=== PATIENT | female | born 1960 | race African-American/Black ===

== ENCOUNTER 2020-03-16 08:58 | Inpatient (IN) | payer OTHER ==
--- NOTE | 2020-03-16 09:12 | BHS.RME ---
Substance Use & Tx History - Substance Use History Alcohol Substance amount: 2 pack beers Frequency of use: Daily Substance route: Oral Date of Last Use: 03/15/20 Nicotine Substance amount: 3-4 ciggs Frequency of use: Daily Substance route: Smoking Date of Last Use: 03/15/20 - Last Treatment Date of last treatment: multiple detoxes in past [facility] 20 years ago. Treatment type: Substance Use Disorder (APRIL) Where was last treatment: Detox Physical/Psych/Mental Status - Behavior General Behavior: Increased activity (restlessness, agitation) Eye Contact: Normal - Cooperativeness Cooperativeness: Cooperative - Thinking Thought Processes: Tight, Logical, Goal Directed - Physical Health Problems Is patient presently having any pain?: No Does patient presently have any injuries (include location): No Does patient currently have a fever: No Is patient : No CIWA Nausea/Vomitin-Mild Nausea/No Vomiting Muscle Tremors: 3 Anxiety: 1-Mildly Anxious Agitation: 1-Slight > Activity Paroxysmal Sweats: 4-Forehead w/Sweat Beads Orientation: 1-Uncertain about Date Tacttile Disturbances: 0-None Auditory Disturbances: 0-None Visual Disturbances: 0-None Headache: 2-Mild CIWA-Ar Total Score: 13
[2020-03-16 09:29] VITALS: BMI 22.4
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
[2020-03-16] MEDS ORDERED: MAGNESIUM CITRATE 300 ML BOTTLE PO PRN (10:18)
[2020-03-16] MEDS ORDERED: chlordiazePOXIDE HCL 25 MG CAPSULE PO PRN (10:18)
[2020-03-16] MEDS ORDERED: ACETAMINOPHEN 325 MG TABLET (FP) PO PRN ×2 (10:18)
[2020-03-16] MEDS ORDERED: MAG HYDROX/AL HYDROX/SIMETH 30 ML UNIT-DOSE CUP PO PRN (10:18)
[2020-03-16] MEDS ORDERED: BISMUTH SUBSALICYLATE 262 MG/15 ML BTL PO PRN (10:18)
[2020-03-16] MEDS ORDERED: NICOTINE POLACRILEX 2 MG GUM BUC PRN (10:18)
[2020-03-16] MEDS ORDERED: METHOCARBAMOL 500 MG TABLET PO PRN (10:18)
[2020-03-16] MEDS ORDERED: MAGNESIUM HYDROX 2400MG/30ML ORAL SUSPENSION 30 ML CUP PO PRN (10:18)
[2020-03-16] MEDS ORDERED: MENTHOL/PHENOL 1 EACH UD MM PRN (10:18)
[2020-03-16] MEDS ORDERED: ONDANSETRON *ODT* 4 MG TABLET SL PRN (10:18)
[2020-03-16] MEDS ORDERED: IBUPROFEN 400 MG TABLET (FP) PO PRN (10:18)
--- NOTE | 2020-03-16 11:28 | CONSULT ---
[facility] Psychiatric Consult - Data Date of interview: 03/16/20 Admission source: [facility] Identifying data: Ms Nicole is a 59 years old female, living with her son in the [place] seeking detox treatment for alcohol Substance Abuse History: Reports history of alcohol use. Refer to addiction counseor's summary for further information Medical History: Significant for HIV diagnosed in, and history of umbilical hernia repair. Smokes 3-4 cigarettes daily
--- NOTE | 2020-03-16 11:43 | EKG ---
Test Reason : Blood Pressure : / mmHG Vent. Rate : 082 BPM Atrial Rate : 082 BPM P-R Int : 144 ms QRS Dur : 080 ms QT Int : 416 ms P-R-T Axes : 073 032 047 degrees QTc Int : 486 ms NORMAL SINUS RHYTHM PROLONGED QT ABNORMAL ECG NO PREVIOUS ECGS AVAILABLE Confirmed by HERNAN VILLATORO MD ([id number]) on 03/16/2020 11:42:53 AM Referred By: Confirmed By:HERNAN VILLATORO MD
[2020-03-16] MEDS ORDERED: hydrOXYzine PAMOATE 25 MG CAPSULE (FP) PO PRN (11:58)
[2020-03-16] MEDS ORDERED: hydrOXYzine PAMOATE 25 MG CAPSULE (FP) PO SCH (14:00)
[2020-03-16] MEDS: chlordiazePOXIDE HCL 25 MG CAPSULE PO SCH ×2 (18:48→22:35)
[2020-03-16] MEDS: THIAMINE HCL 100 MG TABLET (FP) PO SCH (22:34)
[2020-03-16] MEDS: MELATONIN 5 MG TABLETS PO SCH (22:35)
[2020-03-17] MEDS: chlordiazePOXIDE HCL 25 MG CAPSULE PO SCH ×4 (06:16→22:48)
[2020-03-17] MEDS: NICOTINE 7 MG/24 HOURS TOPICAL PATCH TD SCH (10:21)
[2020-03-17] MEDS: PRENATAL VITAMINS W/ FOLIC ACID TABLET (FP) PO SCH (10:43)
--- NOTE | 2020-03-17 10:53 | PN ---
S CIWA - CIWA Score Nausea/Vomitin-No Nausea/No Vomiting Muscle Tremors: 3 Anxiety: 3 Agitation: 3 Paroxysmal Sweats: 2 Orientation: 0-Oriented Tacttile Disturbances: 0-None Auditory Disturbances: 0-None Visual Disturbances: 0-None Headache: 0-None Present CIWA-Ar Total Score: 11 BHS Progress Note (SOAP) Subjective: sweats crying spells restless body aches shakes Objective: 03/17/20 10:52 Vital Signs Temperature 97.7 F 03/17/20 08:50 Pulse Rate 74 03/17/20 08:50 Respiratory Rate 17 03/17/20 08:50 Blood Pressure 112/67 03/17/20 08:50 O2 Sat by Pulse Oximetry (%) 98 03/17/20 08:50 Laboratory Tests 03/16/20 03/16/20 10:10 10:10 Sickle Cell Screen Positive Syphilis Serology Non-reactive rest of labs pending aaox3 ambulating no acute distress Assessment: 03/17/20 10:53 withdrawals Plan: continue detox psych consultation ordered increase fluids
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
[2020-03-17] MEDS ORDERED: COLLOIDAL OATMEAL 1 BAR EACH TP ONE (13:56)
[2020-03-17] MEDS: THIAMINE HCL 100 MG TABLET (FP) PO SCH (22:49)
[2020-03-17] MEDS: MELATONIN 5 MG TABLETS PO SCH (22:51)
[2020-03-18] MEDS: chlordiazePOXIDE HCL 25 MG CAPSULE PO SCH ×4 (06:00→23:49)
[2020-03-18] MEDS: NICOTINE 7 MG/24 HOURS TOPICAL PATCH TD SCH (10:17)
[2020-03-18] MEDS: PRENATAL VITAMINS W/ FOLIC ACID TABLET (FP) PO SCH (10:18)
--- NOTE | 2020-03-18 13:53 | PN ---
BHS CIWA - CIWA Score Nausea/Vomitin-No Nausea/No Vomiting Muscle Tremors: 2 Anxiety: 2 Agitation: 2 Paroxysmal Sweats: 2 Orientation: 0-Oriented Tacttile Disturbances: 0-None Auditory Disturbances: 0-None Visual Disturbances: 0-None Headache: 0-None Present CIWA-Ar Total Score: 8 BHS Progress Note (SOAP) Subjective: sweats feeling better tired/dizzy Objective: 03/18/20 13:52 Vital Signs Temperature 97.5 F L 03/18/20 09:22 Pulse Rate 102 H 03/18/20 09:22 Respiratory Rate 18 03/18/20 09:22 Blood Pressure 152/94 03/18/20 09:22 O2 Sat by Pulse Oximetry (%) 96 03/18/20 09:22 Laboratory Tests 03/16/20 03/16/20 10:10 10:10 Sickle Cell Screen Positive Syphilis Serology Non-reactive scanned labs noted aaox3 lying down no acute distress Assessment: 03/18/20 13:53 withdrawals Plan: continue detox increase fluids
[2020-03-18] MEDS: MELATONIN 5 MG TABLETS PO SCH (23:48)
[2020-03-18] MEDS: THIAMINE HCL 100 MG TABLET (FP) PO SCH (23:48)
[2020-03-19] MEDS ORDERED: chlordiazePOXIDE HCL 10 MG CAPSULE PO PRN
[2020-03-19 00:07] LABS: HGB SOLUBILITY Positive (Negative); Hgb C 0 % (0.0); Hgb F 0 % (0.0-2.0); Hgb S 39.5 % (0.0)
[2020-03-19] MEDS: chlordiazePOXIDE HCL 10 MG CAPSULE PO SCH ×4 (06:08→22:39)
[2020-03-19] MEDS ORDERED: BACITRACIN 0.9 GM PACKET TP ONE (08:12)
--- NOTE | 2020-03-19 08:12 | PN ---
BHS Progress Note Note: pt reports she hit her right foot against the door when coming out of the rom . Small superficial abrasion noted on the dorsum of the right great toe approx 0.5 cm in lenght , vertical, at the base of the toenail . Minimal tenderness topalpation . P : topical bacitracin ointment , analgesics .
[2020-03-19] MEDS: NICOTINE 7 MG/24 HOURS TOPICAL PATCH TD SCH (10:07)
[2020-03-19] MEDS: PRENATAL VITAMINS W/ FOLIC ACID TABLET (FP) PO SCH (10:07)
--- NOTE | 2020-03-19 11:29 | PN ---
S CIWA - CIWA Score Nausea/Vomitin-No Nausea/No Vomiting Muscle Tremors: 2 Anxiety: 1-Mildly Anxious Agitation: 2 Paroxysmal Sweats: 1-Minimal Palms Moist Orientation: 0-Oriented Tacttile Disturbances: 0-None Auditory Disturbances: 0-None Visual Disturbances: 0-None Headache: 0-None Present CIWA-Ar Total Score: 6 BHS Progress Note (SOAP) Subjective: sweats anxiety bump my toe with the door last night Objective: 03/19/20 11:29 Vital Signs Temperature 98.9 F 03/19/20 08:27 Pulse Rate 81 03/19/20 08:27 Respiratory Rate 16 03/19/20 08:27 Blood Pressure 121/84 03/19/20 08:27 O2 Sat by Pulse Oximetry (%) 100 03/19/20 08:27 Laboratory Tests 03/16/20 03/16/20 03/16/20 10:10 10:10 10:10 Sickle Cell Screen Positive Hemoglobin A 56.2 L Hemoglobin A2 4.3 H Hemoglobin C 0 Hemoglobin S 39.5 H Variant Hemoglobin 0.0 Hemoglobin Interpret Maternal Rh 0 Hemoglobin Solubility Positive H Syphilis Serology Non-reactive labs noted pt is sickle cell screen +, pt made aware of lab result aaox3 ambulating no acute distress Assessment: 03/19/20 11:40 withdrawals small abrasion noted to right toe skin area, no bruising noted bacitracin oint ordered Plan: continue detox
[2020-03-19] MEDS ORDERED: MASKS NR ONE (17:42)
[2020-03-19] MEDS: MELATONIN 5 MG TABLETS PO SCH (22:39)
[2020-03-19] MEDS: THIAMINE HCL 100 MG TABLET (FP) PO SCH (22:39)
[2020-03-20] MEDS ORDERED: chlordiazePOXIDE HCL 10 MG CAPSULE PO SCH (05:00)
[2020-03-20 08:56] VITALS: BP 124/72; PULSE 20; TEMP 97.8
--- NOTE | 2020-03-20 09:25 | DS ---
[facility] Detox Discharge Summary Admission Date: 03/16/20 Discharge Date: 03/20/20 - History Present History: Alcohol Dependence - Physical Exam Results Vital Signs: Vital Signs Temperature 97.8 F 03/20/20 08:55 Pulse Rate 20 L 03/20/20 08:55 Respiratory Rate 16 03/20/20 08:55 Blood Pressure 124/72 03/20/20 08:55 O2 Sat by Pulse Oximetry (%) 98 03/20/20 08:55 Pertinent Admission Physical Exam Findings: Vital Signs Temperature 97.8 F 03/20/20 08:55 Pulse Rate 20 L 03/20/20 08:55 Respiratory Rate 16 03/20/20 08:55 Blood Pressure 124/72 03/20/20 08:55 O2 Sat by Pulse Oximetry (%) 98 03/20/20 08:55 Laboratory Tests 03/16/20 03/16/20 03/16/20 10:10 10:10 10:10 Sickle Cell Screen Positive Hemoglobin A 56.2 L Hemoglobin A2 4.3 H Hemoglobin C 0 Hemoglobin S 39.5 H Variant Hemoglobin 0.0 Hemoglobin Interpret Maternal Rh 0 Hemoglobin Solubility Positive H Syphilis Serology Non-reactive aaox3 ambulating no acute distress - Treatment Hospital Course: Detox Protocol Followed, Detoxed Safely, Responded well, D ischarged Condition Good, Rehab Referral Accepted - Medication Discharge Medications: Ambulatory Orders Loratadine 10 mg PO DAILY 03/16/20 - Diagnosis (1) Alcohol dependence with withdrawal, uncomplicated Current Visit: Yes Status: Chronic (2) Alcohol-induced mood disorder Current Visit: Yes Status: Acute (3) Alcohol-induced sleep disorder Current Visit: Yes Status: Acute (4) HIV (human immunodeficiency virus infection) Current Visit: Yes Status: Chronic Qualifiers: HIV symptom status: unspecified Qualified Code(s): B20 - Human immunodeficiency virus [HIV] disease (5) Bipolar 1 disorder Current Visit: Yes Status: Chronic (6) Nicotine dependence Current Visit: Yes Status: Chronic Qualifiers: Nicotine product type: cigarettes Substance use status: uncomplicated Qualified Code(s): F17.210 - Nicotine dependence, cigarettes, uncomplicated - AMA Did Patient Leave Against Medical Advice: No
[2020-03-20] MEDS: PRENATAL VITAMINS W/ FOLIC ACID TABLET (FP) PO SCH (10:06)
[2020-03-20] MEDS: NICOTINE 7 MG/24 HOURS TOPICAL PATCH TD SCH (10:07)
[2020-03-21] MEDS ORDERED: chlordiazePOXIDE HCL 10 MG CAPSULE PO ONE (05:00)
== END 2020-03-20 11:06 | disposition other institution (70) | DRG 775 ==
LOC: YASAS 08:58 → Y6N 09:50
PROVIDERS: ADMIT Allergy & Immunology; ATTEND Allergy & Immunology
PROC: HZ2ZZZZ Detoxification Services for Substance Abuse Treatment (ICD-10-PCS; principal; 2020-03-16)
DX: F10.230 Alcohol dependence with withdrawal, uncomplicated (principal); F17.210 Nicotine dependence, cigarettes, uncomplicated; F10.24 Alcohol dependence with alcohol-induced mood disorder; F10.282 Alcohol dependence with alcohol-induced sleep disorder; F31.9 Bipolar disorder, unspecified; Z21 Asymptomatic human immunodeficiency virus [HIV] infection status; S90.411A Abrasion, right great toe, initial encounter; W22.8XXA Striking against or struck by other objects, initial encounter; Y93.89 Activity, other specified; Y92.230 Patient room in hospital as the place of occurrence of the external cause; Y99.8 Other external cause status; Z90.49 Acquired absence of other specified parts of digestive tract; Z56.0 Unemployment, unspecified
CPT/HCPCS: 36415; 83021; 85660; 86780; 93005; 93010

== ENCOUNTER 2020-03-20 10:30 | Inpatient (IN) | payer OTHER ==
[2020-03-20] MEDS ORDERED: MAGNESIUM CITRATE 300 ML BOTTLE PO PRN (12:22)
[2020-03-20] MEDS ORDERED: LOPERAMIDE HCL 2 MG CAPSULE PO PRN (12:22)
[2020-03-20] MEDS ORDERED: ACETAMINOPHEN 325 MG TABLET (FP) PO PRN (12:22)
[2020-03-20] MEDS ORDERED: P-EPHED 60MG/TRIPROLIDI 2.5MG TABLET PO PRN (12:22)
[2020-03-20] MEDS ORDERED: MAG HYDROX/AL HYDROX/SIMETH 30 ML UNIT-DOSE CUP PO PRN (12:22)
[2020-03-20] MEDS ORDERED: MENTHOL/PHENOL 1 EACH UD MM PRN (12:22)
[2020-03-20] MEDS ORDERED: guaiFENesin 200 MG/10 ML 10 ML UNIT-DOSE CUPS PO PRN (12:22)
[2020-03-20] MEDS ORDERED: MAGNESIUM HYDROX 2400MG/30ML ORAL SUSPENSION 30 ML CUP PO PRN (12:22)
[2020-03-20] MEDS ORDERED: IBUPROFEN 400 MG TABLET (FP) PO PRN (12:22)
--- NOTE | 2020-03-20 12:22 | HP ---
[facility] Rehab Assess/Revision - Admission History Admitted to Rehab from: [address] - Vital signs Vital Signs: Vital Signs Period Temp Pulse Resp BP Sys/Bender Pulse Ox Last 24 Hr 97.3 F 84 18 98/65 - Findings Detox History & Physical reviewed: Yes Concur with findings: Yes Inpatient Rehab Admission - Rehab Decision to Admit Inpatient rehab admission?: Yes - Initial Determination Are CD services needed?: Yes Free of communicable disease: Yes Not in need of hospitalization: Yes - Rehab Admission Criteria Previous failed treatment: Yes Poor recovery environment: Yes Comorbidities: Yes Lacks judgement: Yes Patient is meeting Inpatient Rehab admission criteria:: Yes
--- OUTSIDE RECORDS SUMMARY | 2020-03-20 18:59 | XMS ---
:1960 Author Organization [facility] Support Name Relationship Address Phone UE, UNEMPLOYED Unavailable Unavailable Unavailable UE Unavailable Unavailable Unavailable FRANCES VALLE (THERAPIST) [place] [address] [place] [address] MATTHE[place] [address] Re-disclosure Warning The records that you are about to access may contain information from federally- assisted alcohol or drug abuse programs. If such information is present, then the following federally mandated warning applies: This information has been disclosed to you from records protected by federal confidentiality rules (42 CFR part 2). The federal rules prohibit you from making any further disclosure of this information unless further disclosure is expressly permitted by the written consent of the person to whom it pertains or as otherwise permitted by 42 CFR part 2. A general authorization for the release of medical or other information is NOT sufficient for this purpose. The Federal rules restrict any use of the information to criminally investigate or prosecute any alcohol or drug abuse patient.The records that you are about to access may contain highly sensitive health information, the redisclosure of which is protected by Article 27-F of the [facility] Public Health law. If you continue you may haveaccess to information: Regarding HIV / AIDS; Provided by facilities licensed or operated by the [facility] Office of Mental Health; or Provided by the [facility] Office for People With Developmental Disabilities. If such information is present, then the following [facility] mandated warning applies: This information has been disclosed to you from confidential records which are protected by state law. State law prohibits you from making any further disclosure of this information without the specific written consent of the person to whom it pertains, or as otherwise permitted by law. Any unauthorized further disclosure in violation of state law may result in a fine or halfway sentence or both. A general authorization for the release of medical or other information is NOT sufficient authorization for further disclosure. Insurance Providers Payer name Policy type Policy ID Covered Covered constitution party's Policy P vy / Coverage constitution party ID relationship to [employer] ormation type lutz [employer] [id number] SP [id number] Results ID Date Data Source [id number] 03/15/2020 05:07:00 PM EDT [facility] Name Value Range Interpretation Code Description Data Lydia rce(s) Supporting Document(s ) SARS-CoV-2 [facility] Ql MICHAEL+probe This lab was ordered by [facility] a nd reported by [facility]. Procedure
[2020-03-20] MEDS: MELATONIN 5 MG TABLETS PO SCH (21:39)
[2020-03-20] MEDS: THIAMINE HCL 100 MG TABLET (FP) PO SCH (21:39)
[2020-03-21] MEDS: NICOTINE 21 MG/24 HOURS TOPICAL PATCH TD SCH (09:57)
[2020-03-21] MEDS: PRENATAL VITAMINS W/ FOLIC ACID TABLET (FP) PO SCH (09:57)
[2020-03-21 17:42] LABS: EPI CELLS >36 /uL (0-25.1); HYALINE CASTS 2 /uL (0-3.1); URINE APPEARANCE CLEAR; URINE BACTERIA 1916 /uL (0-1359); URINE BILIRUBIN NEGATIVE (NEGATIVE); URINE COLOR YELLOW; URINE GLUCOSE (UA) NEGATIVE (NEGATIVE); URINE KETONE NEGATIVE (NEGATIVE); URINE LEUK ESTERASE 3+ (NEGATIVE); URINE NITRITE NEGATIVE (NEGATIVE); URINE PROTEIN NEGATIVE (NEGATIVE); URINE RBC 11 /uL (0-23.9); URINE UROBILINOGEN 0.2 mg/dL (0.2-1.0); URINE WBC 124 /uL (0-25.8)
--- NOTE | 2020-03-21 19:07 | PN ---
[facility] Progress Note Note: Patient was seen earlier this afternoon for c/o urinary frequency, mild suprapubic tenderness, dysuria, she denies hematuria,. She denies chills, N/V. PE Vital Signs 03/21/20 14:30 O2 Sat by Pulse 99 Oximetry (%) Vital Signs - 24 hr 03/20/20 03/21/20 03/21/20 20:30 06:20 14:30 Temperature 97.3 F L Pulse Rate 76 Respiratory 16 Rate Blood Pressure 126/73 O2 Sat by Pulse 100 100 99 Oximetry (%) Laboratory Last Values Urine Color Yellow 03/21/20 17:03 Urine Appearance Clear 03/21/20 17:03 Urine pH 7.0 (5.0-8.0) 03/21/20 17:03 Ur Specific [place] 1.013 (1.010-1.035) 03/21/20 17:03 Urine Protein Negative (NEGATIVE) 03/21/20 17:03 Urine Glucose (UA) Negative (NEGATIVE) 03/21/20 17:03 Urine Ketones Negative (NEGATIVE) 03/21/20 17:03 Urine Blood Negative (NEGATIVE) 03/21/20 17:03 Urine Nitrite Negative (NEGATIVE) 03/21/20 17:03 Urine Bilirubin Negative (NEGATIVE) 03/21/20 17:03 Urine Urobilinogen 0.2 mg/dL (0.2-1.0) 03/21/20 17:03 Ur Leukocyte Esterase 3+ (NEGATIVE) H 03/21/20 17:03 Urine WBC (Auto) 124 /uL (0-25.8) 03/21/20 17:03 Urine RBC (Auto) 11 /uL (0-23.9) 03/21/20 17:03 Urine Casts (Auto) 2 /uL (0-3.1) 03/21/20 17:03 U Epithel Cells (Auto) >36 /uL (0-25.1) 03/21/20 17:03 Urine Bacteria (Auto) 1916 /uL (0-1359) 03/21/20 17:03 ABD: BS x 4, NT, ND, UA noted, positive Leukocyte Esterase Given current symptoms, will initiate treatment for UTI Macrodantin ordered for 5 days
[2020-03-21] MEDS: THIAMINE HCL 100 MG TABLET (FP) PO SCH (21:46)
[2020-03-21] MEDS: MELATONIN 5 MG TABLETS PO SCH (21:47)
[2020-03-21] MEDS ORDERED: PT OWN MED DRAWER 7, Y5N ONE (21:50)
[2020-03-21] MEDS: NITROFURANTOIN MACROCRYSTAL 50 MG CAPSULE (FP) PO SCH (23:49)
[2020-03-22] MEDS ORDERED: PT OWN MED DRAWER 7, Y5N ONE (02:51)
[2020-03-22] MEDS: NITROFURANTOIN MACROCRYSTAL 50 MG CAPSULE (FP) PO SCH ×4 (06:59→23:32)
[2020-03-22] MEDS: NICOTINE 21 MG/24 HOURS TOPICAL PATCH TD SCH (09:25)
[2020-03-22] MEDS: PRENATAL VITAMINS W/ FOLIC ACID TABLET (FP) PO SCH (09:25)
[2020-03-22] MEDS ORDERED: MASKS NR ONE (17:58)
[2020-03-22] MEDS: NICOTINE POLACRILEX 2 MG GUM BUC PRN (18:58)
[2020-03-22] MEDS: THIAMINE HCL 100 MG TABLET (FP) PO SCH (21:51)
[2020-03-22] MEDS: MELATONIN 5 MG TABLETS PO SCH (21:51)
[2020-03-23] MEDS: NITROFURANTOIN MACROCRYSTAL 50 MG CAPSULE (FP) PO SCH ×4 (06:32→23:34)
[2020-03-23] MEDS: PRENATAL VITAMINS W/ FOLIC ACID TABLET (FP) PO SCH (09:46)
[2020-03-23] MEDS: NICOTINE 21 MG/24 HOURS TOPICAL PATCH TD SCH (09:46)
--- NOTE | 2020-03-23 12:29 | PN ---
[facility] Progress Note Note: Vital Signs Temperature 97.4 F L 03/23/20 06:45 Pulse Rate 74 03/23/20 06:45 Respiratory Rate 18 03/23/20 06:45 Blood Pressure 125/81 03/23/20 06:45 O2 Sat by Pulse Oximetry (%) 100 03/23/20 06:45 PATIENT C/O DRY MOUTH AND BAD BREATH ODOR. DENIES ORAL PAIN AND LESIONS. A/P A/P HALITOSIS WILL ORDER PERIDEX MM BID MONITOR CLINICALLY
[2020-03-23] MEDS ORDERED: PT OWN MED DRAWER 7, Y5N ONE (17:11)
[2020-03-23] MEDS: MELATONIN 5 MG TABLETS PO SCH (21:30)
[2020-03-23] MEDS: THIAMINE HCL 100 MG TABLET (FP) PO SCH (21:30)
[2020-03-23] MEDS: CHLORHEXIDINE GLUCONATE 118 ML MOUTHWASH MM SCH (21:31)
[2020-03-24] MEDS ORDERED: PT OWN MED DRAWER 7, Y5N ONE ×3 (05:06→16:51)
[2020-03-24] MEDS: NITROFURANTOIN MACROCRYSTAL 50 MG CAPSULE (FP) PO SCH ×4 (06:38→23:49)
[2020-03-24] MEDS: NICOTINE 21 MG/24 HOURS TOPICAL PATCH TD SCH (09:42)
[2020-03-24] MEDS: CHLORHEXIDINE GLUCONATE 118 ML MOUTHWASH MM SCH ×2 (09:42→21:33)
[2020-03-24] MEDS: PRENATAL VITAMINS W/ FOLIC ACID TABLET (FP) PO SCH (09:42)
[2020-03-24] MEDS: MELATONIN 5 MG TABLETS PO SCH (21:32)
[2020-03-24] MEDS: THIAMINE HCL 100 MG TABLET (FP) PO SCH (21:32)
[2020-03-25] MEDS: NITROFURANTOIN MACROCRYSTAL 50 MG CAPSULE (FP) PO SCH (06:16)
[2020-03-25] MEDS: PRENATAL VITAMINS W/ FOLIC ACID TABLET (FP) PO SCH (09:29)
[2020-03-25] MEDS: CHLORHEXIDINE GLUCONATE 118 ML MOUTHWASH MM SCH ×3 (09:30→16:25)
[2020-03-25] MEDS: NICOTINE 21 MG/24 HOURS TOPICAL PATCH TD SCH (09:30)
[2020-03-25] MEDS: HYDROCORTISONE 1% TOPICAL OINT 30 GM TUBE TP PRN (16:57)
[2020-03-25] MEDS ORDERED: PT OWN MED DRAWER 7, Y5N ONE ×3 (16:57→21:51)
[2020-03-25] MEDS: THIAMINE HCL 100 MG TABLET (FP) PO SCH (21:26)
[2020-03-25] MEDS: MELATONIN 5 MG TABLETS PO SCH (21:27)
[2020-03-26] MEDS: CHLORHEXIDINE GLUCONATE 118 ML MOUTHWASH MM SCH ×3 (09:31→21:21)
[2020-03-26] MEDS: PRENATAL VITAMINS W/ FOLIC ACID TABLET (FP) PO SCH (09:36)
[2020-03-26] MEDS ORDERED: MASKS NR ONE (09:37)
[2020-03-26] MEDS: NICOTINE 21 MG/24 HOURS TOPICAL PATCH TD SCH (09:38)
--- NOTE | 2020-03-26 12:47 | PN ---
S Progress Note Note: Urine culture results reviewed; no organism found. Patient made aware. Vital Signs Period Temp Pulse Resp BP Sys/Bender Pulse Ox Last 24 Hr 97.3 F 73 20 122/76 98-100
[2020-03-26] MEDS: THIAMINE HCL 100 MG TABLET (FP) PO SCH (21:21)
[2020-03-26] MEDS: MELATONIN 5 MG TABLETS PO SCH (21:21)
[2020-03-27] MEDS: CHLORHEXIDINE GLUCONATE 118 ML MOUTHWASH MM SCH ×3 (06:33→17:50)
[2020-03-27] MEDS: PRENATAL VITAMINS W/ FOLIC ACID TABLET (FP) PO SCH (09:30)
[2020-03-27] MEDS: NICOTINE 21 MG/24 HOURS TOPICAL PATCH TD SCH (09:30)
[2020-03-27] MEDS: COLLOIDAL OATMEAL 1 BAR EACH TP PRN (15:49)
[2020-03-27] MEDS ORDERED: PT OWN MED DRAWER 7, Y5N ONE (17:03)
[2020-03-27] MEDS: THIAMINE HCL 100 MG TABLET (FP) PO SCH (21:56)
[2020-03-27] MEDS: MELATONIN 5 MG TABLETS PO SCH (21:56)
[2020-03-28] MEDS: CHLORHEXIDINE GLUCONATE 118 ML MOUTHWASH MM SCH ×3 (06:50→18:31)
[2020-03-28] MEDS: PRENATAL VITAMINS W/ FOLIC ACID TABLET (FP) PO SCH (10:08)
[2020-03-28] MEDS: NICOTINE 21 MG/24 HOURS TOPICAL PATCH TD SCH (10:08)
[2020-03-28] MEDS: HYDROCORTISONE 1% TOPICAL OINT 30 GM TUBE TP PRN (10:08)
[2020-03-28] MEDS: NICOTINE POLACRILEX 2 MG GUM BUC PRN (13:38)
[2020-03-28] MEDS ORDERED: PT OWN MED DRAWER 7, Y5N ONE (17:00)
[2020-03-28] MEDS: MELATONIN 5 MG TABLETS PO SCH (21:11)
[2020-03-28] MEDS: THIAMINE HCL 100 MG TABLET (FP) PO SCH (21:11)
[2020-03-29] MEDS ORDERED: PT OWN MED DRAWER 7, Y5N ONE ×4 (05:23→21:32)
[2020-03-29] MEDS: CHLORHEXIDINE GLUCONATE 118 ML MOUTHWASH MM SCH ×3 (06:27→17:20)
[2020-03-29] MEDS: PRENATAL VITAMINS W/ FOLIC ACID TABLET (FP) PO SCH (09:49)
[2020-03-29] MEDS: NICOTINE 21 MG/24 HOURS TOPICAL PATCH TD SCH (09:49)
[2020-03-29] MEDS: HYDROCORTISONE 1% TOPICAL OINT 30 GM TUBE TP PRN (09:49)
[2020-03-29] MEDS: MELATONIN 5 MG TABLETS PO SCH (21:29)
[2020-03-29] MEDS: THIAMINE HCL 100 MG TABLET (FP) PO SCH (21:29)
[2020-03-29] MEDS: hydrOXYzine PAMOATE 25 MG CAPSULE (FP) PO PRN (21:32)
[2020-03-30] MEDS ORDERED: PT OWN MED DRAWER 7, Y5N ONE ×2 (05:21→14:01)
[2020-03-30] MEDS: CHLORHEXIDINE GLUCONATE 118 ML MOUTHWASH MM SCH ×3 (06:30→21:20)
[2020-03-30] MEDS: COLLOIDAL OATMEAL 1 BAR EACH TP PRN (06:54)
[2020-03-30] MEDS: PRENATAL VITAMINS W/ FOLIC ACID TABLET (FP) PO SCH (09:42)
[2020-03-30] MEDS: NICOTINE 21 MG/24 HOURS TOPICAL PATCH TD SCH (09:42)
[2020-03-30] MEDS: HYDROCORTISONE 1% TOPICAL OINT 30 GM TUBE TP PRN (09:43)
[2020-03-30] MEDS: MELATONIN 5 MG TABLETS PO SCH (21:20)
[2020-03-30] MEDS: hydrOXYzine PAMOATE 25 MG CAPSULE (FP) PO PRN (21:20)
[2020-03-30] MEDS: THIAMINE HCL 100 MG TABLET (FP) PO SCH (21:20)
[2020-03-31] MEDS ORDERED: PT OWN MED DRAWER 7, Y5N ONE (03:18)
[2020-03-31] MEDS: CHLORHEXIDINE GLUCONATE 118 ML MOUTHWASH MM SCH ×3 (06:38→18:21)
[2020-03-31] MEDS: NICOTINE 21 MG/24 HOURS TOPICAL PATCH TD SCH (09:31)
[2020-03-31] MEDS: PRENATAL VITAMINS W/ FOLIC ACID TABLET (FP) PO SCH (09:31)
[2020-03-31] MEDS: HYDROCORTISONE 1% TOPICAL OINT 30 GM TUBE TP PRN (09:33)
[2020-03-31] MEDS: hydrOXYzine PAMOATE 25 MG CAPSULE (FP) PO PRN (20:59)
[2020-03-31] MEDS: MELATONIN 5 MG TABLETS PO SCH (20:59)
[2020-03-31] MEDS: THIAMINE HCL 100 MG TABLET (FP) PO SCH (20:59)
[2020-04-01] MEDS ORDERED: PT OWN MED DRAWER 7, Y5N ONE (03:18)
[2020-04-01] MEDS: CHLORHEXIDINE GLUCONATE 118 ML MOUTHWASH MM SCH ×3 (06:56→21:28)
[2020-04-01 07:04] VITALS: TEMP 97.3
[2020-04-01] MEDS: NICOTINE 21 MG/24 HOURS TOPICAL PATCH TD SCH (09:32)
[2020-04-01] MEDS: PRENATAL VITAMINS W/ FOLIC ACID TABLET (FP) PO SCH (09:32)
[2020-04-01] MEDS: THIAMINE HCL 100 MG TABLET (FP) PO SCH (21:27)
[2020-04-01] MEDS: hydrOXYzine PAMOATE 25 MG CAPSULE (FP) PO PRN (21:27)
[2020-04-01] MEDS: MELATONIN 5 MG TABLETS PO SCH (21:28)
[2020-04-02] MEDS: CHLORHEXIDINE GLUCONATE 118 ML MOUTHWASH MM SCH ×3 (06:33→18:30)
[2020-04-02] MEDS: NICOTINE 21 MG/24 HOURS TOPICAL PATCH TD SCH (09:08)
[2020-04-02] MEDS: PRENATAL VITAMINS W/ FOLIC ACID TABLET (FP) PO SCH (09:08)
[2020-04-02] MEDS: HYDROCORTISONE 1% TOPICAL OINT 30 GM TUBE TP PRN (09:08)
[2020-04-02] MEDS ORDERED: PT OWN MED DRAWER 7, Y5N ONE (10:02)
[2020-04-02] MEDS: THIAMINE HCL 100 MG TABLET (FP) PO SCH (21:12)
[2020-04-02] MEDS: hydrOXYzine PAMOATE 25 MG CAPSULE (FP) PO PRN (21:13)
[2020-04-02] MEDS: MELATONIN 5 MG TABLETS PO SCH (21:13)
[2020-04-03] MEDS ORDERED: PT OWN MED DRAWER 7, Y5N ONE (04:10)
[2020-04-03 06:49] VITALS: BP 114/74; PULSE 77
[2020-04-03] MEDS: CHLORHEXIDINE GLUCONATE 118 ML MOUTHWASH MM SCH (06:53)
--- NOTE | 2020-04-03 08:58 | DS ---
[facility] Rehab Discharge Summary - [facility] Rehab Discharge Summary Admission Date: 03/20/20 Discharge Date: 04/03/20 - History Present History: Alcohol dependence - Discharge Physical Exam Vital Signs: Vital Signs Temperature 97.3 F L 04/03/20 06:10 Pulse Rate 77 04/03/20 06:10 Respiratory Rate 18 04/03/20 06:10 Blood Pressure 114/74 04/03/20 06:10 O2 Sat by Pulse Oximetry (%) 100 04/03/20 06:10 Laboratory Tests 03/21/20 17:03 Urine Color Yellow Urine Appearance Clear Urine pH 7.0 Ur Specific [place] 1.013 Urine Protein Negative Urine Glucose (UA) Negative Urine Ketones Negative Urine Blood Negative Urine Nitrite Negative Urine Bilirubin Negative Urine Urobilinogen 0.2 Ur Leukocyte Esterase 3+ H Urine WBC (Auto) 124 Urine RBC (Auto) 11 Urine Casts (Auto) 2 U Epithel Cells (Auto) >36 Urine Bacteria (Auto) 1916 ROS: DENIES CHEST PAIN, SOB, FEVER, COUGH, SHAKES, HEADACHE, ALCOHOL CRAVINGS AND SWEATING. +MILD ANXIETY REGARDING MAINTAINING SOBRIETY PE: ALERT AND ORIENTED X 3 SKIN WARM AND DRY +PERRLA, EOMS INTACT BL IN NAD GI NT, ND EXT FULL ROM, AMB AD HAFSA NO TREMORS MILDLY ANXIOUS A/P: ETOH DEPENDENCE PATIENT IS MEDICALLY STABLE FOR D/C AFTERCARE ARRANGED FOR [facility], 04/06/2020 1PM. - Treatment Discharge Condition: Discharge condition good, Rehabilitated safely, Responded well, Outpatient referral accepted Hospital Course: PATIENT DISCHARGED FROM REHAB TODAY FOR ALCOHOL DEPENDENCE. SHE IS MEDICALLY STABLE AND DENIES SI/HI. DURING COURSE OF TREATMENT, PATIENT ATTENDED GROUP MEETINGS AND 1:1 SESSIONS WITH COUNSELING STAFF. MEDICALLY SHE REMAINED STABLE DURING TREATMENT AND WAS TESTED FOR UTI WITH NEGATIVE RESULTS. AFTERCARE ARRANGED FOR [facility] AND APPT IS SCHEDULED FOR 04/06/2020, 1PM. PATIENT IS MOTIVATED TO MAINTAIN SOBRIETY ALTHOUGH MILDLY ANXIOUS. MEDICALLY ADVISED TO FOLLOW UP WITH PCP RECOMMENDED AND TO CONTINUE WITH OTP MEETINGS TO PREVENT RELAPSE. Ambulatory Orders Loratadine 10 mg PO DAILY #14 tablet 04/02/20 - Medication Discharge Medications: Ambulatory Orders Loratadine 10 mg PO DAILY #14 tablet 04/02/20 - Medication-Assisted Treatment (MAT) Medication-Assisted Treatment (MAT): No - Discharge Instructions Diet, activity, other medical instructions: Diet: REG TOLERATED Activity: AD HAFSA Other medical instructions: F/U WITH PCP RECOMMENDED - Follow-up Referral Minutes to complete discharge: 35 - AMA Did Patient Leave Against Medical Advice: No
== END 2020-04-03 08:45 | disposition home or self-care (01) | DRG 772 ==
LOC: YASAS 10:30 → Y3E 10:32
PROVIDERS: ADMIT Allergy & Immunology; ATTEND Allergy & Immunology
PROC: HZ42ZZZ Group Counseling for Substance Abuse Treatment, Cognitive-Behavioral (ICD-10-PCS; principal; 2020-03-20)
DX: F10.20 Alcohol dependence, uncomplicated (principal); F17.210 Nicotine dependence, cigarettes, uncomplicated; F31.9 Bipolar disorder, unspecified; Z21 Asymptomatic human immunodeficiency virus [HIV] infection status; N39.0 Urinary tract infection, site not specified; R19.6 Halitosis; R68.2 Dry mouth, unspecified
CPT/HCPCS: 81003; 87086